=== PATIENT | female | born 1970 | race Caucasian/White ===

== ENCOUNTER 2018-04-19 14:54 | Inpatient (IN) | payer BC, OTHER ==
[~2018-04-19] VITALS: Ht 157.5 cm; Wt 56.8 kg
[2018-04-19] MEDS ORDERED: SODIUM CHLORIDE 0.9% 1,000 ML IV ONE (15:09)
[2018-04-19] MEDS ORDERED: ONDANSETRON HCL 4 MG/2 ML VIAL IV ONE (15:15)
[2018-04-19] MEDS ORDERED: MORPHINE SULFATE 4 MG/ML SYR/VIAL IV ONE (15:15)
[2018-04-19 15:23] LABS: Basophils # (auto) 0 uL; Basophils % (auto) 0.1 % (0.0-2.0); Eosinophils # (auto) 0 uL; Eosinophils % (auto) 0.2 % (0.0-7.0); Hematocrit 37.1 % (36.0-46.0); Hemoglobin 13.2 g/dL (12.2-16.2); Lymphocytes # (auto) 0.1 uL; Lymphocytes % (auto) 5.9 % (10.0-50.0); Mean Corpuscular Hemoglobin 33.7 pg (28.0-32.0); Mean Corpuscular Hgb Conc. 35.5 g/dL (32.0-36.0); Mean Corpuscular Volume 94.9 fL (80.0-100.0); Monocytes # (auto) 0 uL; Monocytes % (auto) 1.7 % (0.0-12.0); Neutrophils # (auto) 2.2 uL; Neutrophils % (auto) 92.1 % (37.0-80.0); Nucleated Red Blood Cells % 0.3 %; Platelet Count (auto) 139 10^3/uL (140-450); Red Blood Cells 3.91 10^6/uL (4.0-5.20); Red Cell Distribution Width 18.2 % (11.8-14.3); White Blood Cell 2.4 10^3/uL (4.4-10.8)
[2018-04-19 15:37] LABS: INR 0.94 (0.9-1.15); Partial Thromboplastin Time 23.7 sec (23.78-33.04); Prothrombin Time 10.1 sec (9.27-12.13)
[2018-04-19 15:40] LABS: Albumin 3.5 g/dL (3.4-5.0); Anion Gap 12 (5-15); Blood Urea Nitrogen 8 mg/dL (7-18); Calcium 8.9 mg/dL (8.5-10.1); Carbon Dioxide 19 mmol/L (21-32); Chloride 102 mmol/L (98-107); Glucose 182 mg/dL (74-106); Sodium 133 mmol/L (136-145)
[2018-04-19 15:47] LABS: Alanine Aminotransferase 31 U/L (13-56); Alkaline Phosphatase 70 U/L (45-117); Aspartate Aminotransferase 22 U/L (15-37); BUN/Creatinine Ratio 7.4; Bilirubin, Total 1.2 mg/dL (0.2-1.0); GFR African American 70 mL/min; GFR Non-African American 58 mL/min; Total Protein 7.1 g/dL (6.4-8.2)
[2018-04-19] MEDS ORDERED: cefTRIAXone 1GM/50ML D5W 50 ML IV ONE (16:30)
[2018-04-19] MEDS ORDERED: PROMETHAZINE HCL 25 MG/ML 1ML IV PRN (16:45)
[2018-04-19] MEDS ORDERED: PROCHLORPERAZINE MALEATE 10 MG TAB PO PRN (16:45)
[2018-04-19] MEDS ORDERED: diphenhdrAMINE HCL 50 MG/1 ML VL IV PRN (16:45)
[2018-04-19] MEDS ORDERED: ZOLPIDEM TARTRATE 5 MG TAB PO PRN (16:45)
[2018-04-19] MEDS ORDERED: NITROGLYCERIN 0.4 MG SL TAB SL PRN (17:00)
[2018-04-19] MEDS ORDERED: MORPHINE SULFATE 4 MG/ML SYR/VIAL IV PRN ×2 (17:00)
[2018-04-19] MEDS ORDERED: DEXTROSE (50%) 50ML SYRG IV PRN (17:00)
[2018-04-19] MEDS ORDERED: ACETAMINOPHEN 325 MG TAB PO PRN (17:00)
[2018-04-19] MEDS ORDERED: HYDROcodone-ACET 5/325MG TAB PO PRN (17:00)
[2018-04-19] MEDS ORDERED: DOCUSATE SOD 100 MG CAP PO PRN (17:00)
[2018-04-19] MEDS: POTASSIUM CHL 20MEQ/100ML 100 ML IV SCH ×2 (17:54→20:11)
[2018-04-19] MEDS: methylPREDNISolone SOD SUCC 125 MG/2 ML VL IV SCH ×2 (18:40→23:49)
[2018-04-19] MEDS: ACCU-CHEK COMFORT CURVE STRIP VI SCH ×2 (18:46→21:57)
[2018-04-19] MEDS: InsuLIN REG 1unit/0.01ml Soln (100units/ml) SC SCH ×2 (18:46→21:57)
[2018-04-19 21:00] VITALS: BP 99/51
[2018-04-19] MEDS: FAMOTIDINE 20 MG TAB PO SCH (21:53)
[2018-04-19] MEDS: SODIUM CHLORIDE 0.9% 1,000 ML IV SCH (21:54)
[2018-04-19 22:00] VITALS: BP 99/51
[2018-04-19 22:28] LABS: Calcium 7.9 mg/dL (8.5-10.1)
[2018-04-19 22:31] LABS: BUN/Creatinine Ratio 7.3
[2018-04-19 22:34] LABS: Lactic Acid w/Reflex 3.2 mmol/L (0.4-2.0)
[2018-04-19 22:35] LABS: Potassium 2.8 mmol/L (3.5-5.1)
[2018-04-20] MEDS: SODIUM CHLORIDE 0.9% 1,000 ML IV SCH ×2 (00:07→09:00)
[2018-04-20] MEDS: POTASSIUM CHL 20MEQ/100ML 100 ML IV SCH (00:09)
[2018-04-20 04:59] VITALS: BP 90/61
[2018-04-20] MEDS: methylPREDNISolone SOD SUCC 125 MG/2 ML VL IV SCH (05:55)
[2018-04-20 06:21] LABS: Lactic Acid w/Reflex 2.3 mmol/L (0.4-2.0)
[2018-04-20] MEDS: ACCU-CHEK COMFORT CURVE STRIP VI SCH ×4 (06:49→21:22)
[2018-04-20] MEDS: InsuLIN REG 1unit/0.01ml Soln (100units/ml) SC SCH ×4 (06:49→21:22)
[2018-04-20 08:22] LABS: Basophils # (auto) 0 uL; Basophils % (auto) 0.1 % (0.0-2.0); Eosinophils # (auto) 0 uL; Hematocrit 30.3 % (36.0-46.0); Hemoglobin 10.6 g/dL (12.2-16.2); Lymphocytes # (auto) 0.1 uL; Lymphocytes % (auto) 2.2 % (10.0-50.0); Mean Corpuscular Hemoglobin 33.6 pg (28.0-32.0); Mean Corpuscular Hgb Conc. 34.9 g/dL (32.0-36.0); Mean Corpuscular Volume 96.3 fL (80.0-100.0); Monocytes # (auto) 0.2 uL; Monocytes % (auto) 4.2 % (0.0-12.0); Neutrophils # (auto) 3.6 uL; Neutrophils % (auto) 93.5 % (37.0-80.0); Nucleated Red Blood Cells % 0.1 %; Platelet Count (auto) 103 10^3/uL (140-450); Red Blood Cells 3.15 10^6/uL (4.0-5.20); Red Cell Distribution Width 18.6 % (11.8-14.3); White Blood Cell 3.9 10^3/uL (4.4-10.8)
[2018-04-20 08:31] LABS: Calcium 8.4 mg/dL (8.5-10.1); Potassium 4.3 mmol/L (3.5-5.1)
[2018-04-20 08:33] LABS: BUN/Creatinine Ratio 10.4; Bilirubin, Total 0.8 mg/dL (0.2-1.0)
[2018-04-20] MEDS: FAMOTIDINE 20 MG TAB PO SCH ×2 (08:51→21:23)
[2018-04-20 09:00] VITALS: BP 91/58
[2018-04-20] MEDS: MULTIPLE VITAMIN TAB PO SCH (09:00)
[2018-04-20] MEDS ORDERED: cefTRIAXone 1GM/50ML D5W 50 ML IV SCH (09:00)
[2018-04-20] MEDS ORDERED: SODIUM CHLORIDE 0.9% 1,000 ML IV SCH (09:30)
[2018-04-20] MEDS ORDERED: ARTIFICIAL TEARS 15ml EACHEYE PRN (12:30)
[2018-04-20 13:00] VITALS: BP 94/62
[2018-04-20] MEDS ORDERED: ACETAMINOPHEN 500 MG TAB PO PRN (14:15)
[2018-04-20] MEDS: ONDANSETRON HCL 4 MG/2 ML VIAL IV PRN ×2 (15:26→21:23)
[2018-04-20 17:00] VITALS: BP 107/68
[2018-04-20 20:25] VITALS: BP 97/57
[2018-04-20 22:00] VITALS: BP 97/57
[2018-04-21 04:50] VITALS: BP 97/48
[2018-04-21] MEDS: InsuLIN REG 1unit/0.01ml Soln (100units/ml) SC SCH (06:48)
[2018-04-21] MEDS: ACCU-CHEK COMFORT CURVE STRIP VI SCH (06:49)
[2018-04-21 08:03] VITALS: BP 90/55
[2018-04-21 08:31] LABS: Basophils # (auto) 0 uL; Basophils % (auto) 1.4 % (0.0-2.0); Eosinophils # (auto) 0 uL; Eosinophils % (auto) 0.4 % (0.0-7.0); Hematocrit 31.2 % (36.0-46.0); Hemoglobin 10.8 g/dL (12.2-16.2); Lymphocytes # (auto) 0.1 uL; Lymphocytes % (auto) 5.2 % (10.0-50.0); Mean Corpuscular Hemoglobin 33.6 pg (28.0-32.0); Mean Corpuscular Hgb Conc. 34.5 g/dL (32.0-36.0); Mean Corpuscular Volume 97.4 fL (80.0-100.0); Monocytes # (auto) 0.3 uL; Monocytes % (auto) 10.2 % (0.0-12.0); Neutrophils # (auto) 2.3 uL; Neutrophils % (auto) 82.8 % (37.0-80.0); Platelet Count (auto) 103 10^3/uL (140-450); Red Cell Distribution Width 19.2 % (11.8-14.3); White Blood Cell 2.8 10^3/uL (4.4-10.8)
[2018-04-21 08:50] LABS: BUN/Creatinine Ratio 14.6; Potassium 3.5 mmol/L (3.5-5.1)
[2018-04-21] MEDS: MULTIPLE VITAMIN TAB PO SCH (09:57)
[2018-04-21] MEDS: FAMOTIDINE 20 MG TAB PO SCH (09:57)
== END 2018-04-21 11:16 | disposition home or self-care (01) | DRG 809 ==
LOC: ER 14:57 → TELE 14:58 → TELE-EAST 20:08 → EAST 04-21 04:00
PROVIDERS: ADMIT Internal Medicine; ATTEND Internal Medicine
DX: D61.810 Antineoplastic chemotherapy induced pancytopenia (principal); E44.1 Mild protein-calorie malnutrition; C20 Malignant neoplasm of rectum; E87.2 Acidosis; E87.1 Hypo-osmolality and hyponatremia; E86.0 Dehydration; E11.22 Type 2 diabetes mellitus with diabetic chronic kidney disease; J02.9 Acute pharyngitis, unspecified; R06.1 Stridor; Z68.22 Body mass index [BMI] 22.0-22.9, adult; E87.6 Hypokalemia; N18.3 Chronic kidney disease, stage 3 (moderate); Z82.49 Family history of ischemic heart disease and other diseases of the circulatory system; Z80.3 Family history of malignant neoplasm of breast; Z83.3 Family history of diabetes mellitus; Z85.048 Personal history of other malignant neoplasm of rectum, rectosigmoid junction, and anus; Z92.21 Personal history of antineoplastic chemotherapy; Z92.3 Personal history of irradiation; Z93.2 Ileostomy status; Z98.51 Tubal ligation status; Z93.3 Colostomy status
CPT/HCPCS: 36415; 71045; 80048; 80053; 82962; 83036; 83605; 83880; 84484; 85025; 85610; 85730; 87040; 93005; 96361; 96374; 96375; A6257; G0378; J0696; J2405; J3480